=== PATIENT | female | born 1955 | race African-American/Black ===

== ENCOUNTER 2019-02-16 04:00 | Emergency (ER) | payer MEDICAID, OTHER ==
[~2019-02-16] VITALS: Ht 167.6 cm; Wt 86.0 kg
[2019-02-16] MEDS ORDERED: KETOROLAC 30MG/ML VIAL IM ONE (06:15)
[2019-02-16 06:46] LABS: CLARITY URINE CLOUDY (CLEAR); COLOR URINE YELLOW (YELLOW); KETONES URINE NEGATIVE (NEGATIVE); LEUKOCYTE ESTERASE URINE 2+ (NEGATIVE); NITRITE URINE NEGATIVE (NEGATIVE); OCCULT BLOOD URINE NEGATIVE (NEGATIVE); PH URINE 6.5 (4.5-8.0); PROTEIN URINE NEGATIVE (NEGATIVE); SPECIFIC GRAVITY URINE 1.006 (1.005-1.030)
[2019-02-16] MEDS ORDERED: ACETAMINOPHEN WITH CODEINE 300/30MG TABLET PO ONE (07:30)
[2019-02-16] MEDS ORDERED: CEPHALEXIN 250MG CAPSULE PO ONE (07:30)
[2019-02-16 08:25] VITALS: BP 126/79
== END 2019-02-16 08:35 | disposition home or self-care (01) ==
LOC: ER 04:00
DX: M79.672 Pain in left foot (principal); M79.605 Pain in left leg; M47.896 Other spondylosis, lumbar region; N39.0 Urinary tract infection, site not specified; E11.9 Type 2 diabetes mellitus without complications; I10 Essential (primary) hypertension; M79.622 Pain in left upper arm; M79.661 Pain in right lower leg; Z85.3 Personal history of malignant neoplasm of breast
CPT/HCPCS: 72100; 73630; 81003; 82962; 87086; 96372; 99284; J1885

== ENCOUNTER → 2019-12-13 | Outpatient (CLI) | payer MEDICARE, MEDICAID | END | disposition home or self-care (01) | LOC: LAB 12:19 | PROVIDERS: ATTEND Internal Medicine Cardiovascular Disease | DX: Z20.828 Contact with and (suspected) exposure to other viral communicable diseases (principal) | CPT/HCPCS: C9803; U0003 ==

== ENCOUNTER → 2019-12-15 | Day surgery (SDC) | payer MEDICARE, MEDICAID ==
[~2019-12-15] VITALS: Ht 157.5 cm; Wt 88.9 kg
[~2019-12-15] MED LIST: ACETAMINOPHEN 325MG TABLET PO PRN; ASPI-1497 PO; ATEN100T MT; FENTANYL CITRATE/PF 50MCG/ML 2ML VIAL ONE; GABA-531 MT; GLIP5TAB12 MT; HEPARIN SODIUM 1,000 UNIT/1ML VIAL IV ONE; IODIXANOL 320MG/ML 200ML BOTTLE ONE; KCL 20MEQ/100ML PREMIX 100 ML IV NR; LETR2.5T7 MT; LIDOCAINE HCL 1% 20ML VIAL (Pyxis) INJ ONE; LOSA100T32 MT; MELA3TAB63 MT; MIDAZOLAM HCL 5 MG/5 ML VIAL ONE; MORPHINE SULFATE 2 MG/ML CPJ (NOT FOR IM USE) IV PRN; NICARDIPINE 100MCG/ML 10ML VIAL (CATH LAB) IV ONE; NITROGLYCERIN 50MCG/ML 10ML VIAL (CATH LAB) IV ONE; ONDANSETRON HCL 4MG/2ML INJ IV PRN; PANT20TA3 MT; POTASSIUM CHLORIDE 20MEQ TABLET SR PO SCH; PYR200 MT; SULF1TAB47 MT; ZOLP10TA2 MT
[2019-12-15 10:48] LABS: HEMATOCRIT 37.7 % (36.0-48.0); HEMOGLOBIN 12.2 g/dL (12.0-16.0); MEAN CORPUSCULAR HEMOGLOBIN 22.7 pg (28.0-32.0); MEAN CORPUSCULAR VOLUME 70.3 fL (81.0-99.0); PLATELET 167 x1000/uL (130-400); RED BLOOD CELL COUNT 5.37 mill/uL (4.2-5.4); RED CELL DISTRIBUTION WIDTH 14.3 % (11.6-14.6)
[2019-12-15 10:53] LABS: CHLORIDE 96 mEq/L (98-107)
[2019-12-15 10:59] LABS: PARTIAL THROMBOPLASTIN TIME 31.9 sec (23.4-31.0); PROTHROMBIN TIME 10.9 sec (9.6-11.0)
== END | disposition home or self-care (01) ==
LOC: CCL 06:00
PROVIDERS: ATTEND Internal Medicine Cardiovascular Disease
DX: R07.9 Chest pain, unspecified (principal); I10 Essential (primary) hypertension; Z79.82 Long term (current) use of aspirin; Z79.899 Other long term (current) drug therapy; Z98.890 Other specified postprocedural states; Z88.8 Allergy status to other drugs, medicaments and biological substances
CPT/HCPCS: 36415; 80048; 83735; 85027; 85610; 85730; 93005; 93458; C1769; C1893; J1644; J2250; J3010; J3480; J3490; Q9967